=== PATIENT | female | born 1990 | race African-American/Black ===

== ENCOUNTER 2017-05-17 09:35 | Emergency (ER) | payer OTHER ==
[2017-05-17 10:11] VITALS: BP 124/80; PULSE 75; TEMP 98.6; BMI 34.0
[2017-05-17] MEDS ORDERED: IBUPROFEN 600 MG TABLET (FP) PO ONE ×2 (11:12→11:19)
--- NOTE | 2017-05-17 11:23 | PDOC ---
History of Present Illness - General Chief Complaint: Cold Symptoms Stated Complaint: FLU LIKE SYMPTOMS Time Seen by Provider: 05/17/17 11:02 History Source: Patient Exam Limitations: No Limitations - History of Present Illness Initial Comments: 05/17/17 11:16 27 yr female with sore throat for 2 days body aches and fever last night taking OTC meds no abd pain no diff swallowing or speaking Timing/Duration: reports: getting worse Severity: reports: moderate Past History - Past Medical History Allergies/Adverse Reactions: Allergies Allergy/AdvReac Type Severity Reaction Status Date / Time No Known Allergies Allergy Verified 05/17/17 10:08 Home Medications: Ambulatory Orders NK [No Known Home Medication] 06/01/16 Anemia: Yes COPD: No DVT: No - Reproductive History (#): 1 Para: 0 - Immunization History Immunization Up to Date: Yes - Suicide/Smoking/Psychosocial Hx Smoking History: Never smoked Have you smoked in the past 12 months: No Information on smoking cessation initiated: No Hx Alcohol Use: No Drug/Substance Use Hx: No Substance Use Type: None Respiratory Specific PMHX - Complaint Specific PMHX Angina: No Bronchitis: No Pneumonia: No Pulmonary Embolus: No TB (Tuberculosis): No Review of Systems - Review of Systems Able to Perform ROS?: Yes Is the patient limited Maori proficient: No Constitutional: Yes: Symptoms Reported, Fever HEENTM: Yes: Throat Pain Respiratory: No: Symptoms reported Cardiac (ROS): No: Symptoms Reported ABD/GI: No: Symptoms Reported : No: Symptoms Reported Musculoskeletal: No: Symptoms Reported Integumentary: No: Symptoms Reported Neurological: No: Symptoms reported *Physical Exam - Vital Signs Last Vital Signs Temp Pulse Resp BP Pulse Ox 98.6 F 75 16 124/80 98 05/17/17 10:08 05/17/17 10:08 05/17/17 10:08 05/17/17 10:08 05/17/17 10:08 - Physical Exam General Appearance: Yes: Nourished, Appropriately Dressed HEENT: positive: EOMI, MANDY, Normal ENT Inspection, TMs Normal, Pharynx Normal, Pharyngeal Erythema, Tonsillar Erythema Neck: positive: Supple, Lymphadenopathy (R), Lymphadenopathy (L). negative: Tender Respiratory/Chest: positive: Lungs Clear, Normal Breath Sounds. negative: Chest Tender Cardiovascular: positive: Regular Rhythm, Regular Rate Musculoskeletal: positive: Normal Inspection Extremity: positive: Normal Capillary Refill, Normal Inspection, Normal Range of Motion Integumentary: positive: Normal Color, Dry, Warm Neurologic: positive: Fully Oriented, Alert, Normal Mood/Affect, Normal Response , Motor Strength 08/20 Medical Decision Making - Medical Decision Making 05/17/17 11:19 cc: sore throat , body aches started yesterday no vomiting or diarrhea no medical history. will check for strep motrin now *DC/Admit/Observation/Transfer Diagnosis at time of Disposition: Viral syndrome - Discharge Dispostion Disposition: HOME Condition at time of disposition: Good - Referrals Referrals: Kike Alvarenga MD [Primary Care Provider] - - Patient Instructions Printed Discharge Instructions: DI for Common Cold Additional Instructions: drink pleanty of fluids take motrin 600mg every 6-8hrs for fever or pain (over the counter ibuprofen, advil or motrin all the same ) gargle with warm salt water 4-5 times a day use any over the counter throat lozengers you like return to ER for any worsening symptoms - Post Discharge Activity
== END 2017-05-17 12:51 | disposition home or self-care (01) ==
LOC: JERFT 09:35
DX: B34.9 Viral infection, unspecified (principal)
CPT/HCPCS: 87070; 87430; 99281-25

== ENCOUNTER 2017-06-08 15:08 | Emergency (ER) | payer OTHER ==
--- NOTE | 2017-06-08 15:20 | PDOC ---
Rapid Medical Evaluation Time Seen by Provider: 06/08/17 15:19 Medical Evaluation: Allergies Allergy/AdvReac Type Severity Reaction Status Date / Time No Known Allergies Allergy Verified 05/17/17 10:08 06/08/17 15:19 I have performed a brief in-person evaluation of this patient. The patient presents with a chief complaint of: body aches w/ URI sxs x 3 days Pertinent physical exam findings:Temp of 102.4 w/ unremarkable exam otherwise I have ordered the following:nothing The patient will proceed to the ED for further evaluation. 06/08/17 15:21
[2017-06-08 15:23] VITALS: BMI 36.9
[2017-06-08] MEDS ORDERED: ACETAMINOPHEN 500 MG TABLET (FP) PO ONE (17:48)
[2017-06-08] MEDS ORDERED: ACETAMINOPHEN 500 MG TABLET (FP) ONE (17:56)
[2017-06-08 18:11] LABS: URINE APPEARANCE CLOUDY; URINE BILIRUBIN NEGATIVE (NEGATIVE); URINE BLOOD 3+ (NEGATIVE); URINE COLOR AMBER; URINE GLUCOSE (UA) NEGATIVE (NEGATIVE); URINE KETONE TRACE (NEGATIVE); URINE NITRITE NEGATIVE (NEGATIVE)
[2017-06-08 18:24] LABS: BASO % 0.5 % (0-2.0); EOS % 3.5 % (0-4.5); HEMATOCRIT 39.4 % (32.4-45.2); HEMOGLOBIN 12.9 GM/dL (10.7-15.3); LYMPH % 20.9 % (8-40); MCH 27.8 pg (25.7-33.7); MCHC 32.8 g/dl (32.0-36.0); MEAN CELL VOLUME 84.9 fl (80-96); MEAN PLT VOLUME 8.2 fl (7.5-11.1); MONO % 13.9 % (3.8-10.2); NEUT % 61.2 % (42.8-82.8); PLATELET COUNT 225 K/MM3 (134-434); RBC 4.64 M/mm3 (3.60-5.2); RDW 14.6 % (11.6-15.6); WHITE BLOOD COUNT 4.2 K/mm3 (4.0-10.0)
[2017-06-08 18:32] LABS: URINE LEUK ESTERASE 1+ (NEGATIVE); URINE PROTEIN 2+ (NEGATIVE)
[2017-06-08 18:33] LABS: EPI CELLS MANY /HPF (FEW); URINE BACTERIA RARE /hpf (NONE SEEN); URINE MUCUS MANY
[2017-06-08 19:05] LABS: ALBUMIN 3.7 g/dl (3.4-5.0); ANION GAP 13 (8-16); BLOOD UREA NITROGEN 8 mg/dL (7-18); CALCIUM 9.1 mg/dL (8.5-10.1); CHLORIDE 101 mmol/L (98-107); CO2 22 mmol/L (21-32); CREATININE 0.8 mg/dL (0.55-1.02); GLUCOSE,RANDOM 94 mg/dL (74-106); POTASSIUM 3.9 mmol/L (3.5-5.1); SGOT/AST 22 U/L (15-37); SGPT/ALT 25 U/L (12-78); SODIUM 136 mmol/L (136-145)
--- NOTE | 2017-06-08 19:07 | PDOC ---
History of Present Illness - General Chief Complaint: Respiratory Stated Complaint: BODYACHES, NAUSEA Time Seen by Provider: 06/08/17 15:19 - History of Present Illness Initial Comments: 06/08/17 19:04 " The patient is a 27 year old female, , with no significant past medical history, who presents to the emergency department with flu like symptoms for a few days. She reports that she has been experiencing a fever (102.4 F), chills, dry cough and nasal congestion for about 3 days. Denies any abdominal pain, denies chest pain, denies SOB, denies N/V/D. Pt also reports that she had a test last week which was positive. She saw her primary doctor, who performed an US that she states "did not show anything". Pt notes that today, she began to have some vaginal spotting as well with diffuse abdominal cramps. She describes her vaginal bleeding as mild and her abdominal pain as mild, without radiation or modifying factors. The patient denies chest pain, shortness of breath, headache and dizziness. Denies nausea, vomit, diarrhea and constipation. Denies dysuria, frequency, urgency and hematuria. LMP: 04/29/2017 Allergies: None Past surgical history: None reported Social history: No alcohol, tobacco or drug use reported " Past History - Past Medical History Allergies/Adverse Reactions: Allergies Allergy/AdvReac Type Severity Reaction Status Date / Time No Known Allergies Allergy Verified 06/08/17 15:22 Home Medications: Ambulatory Orders Nitrofurantoin Monohyd/M-Cryst [Macrobid -] 100 mg PO BID #14 capsule 06/08/17 Oseltamivir Phosphate [Tamiflu] 75 mg PO BID #14 capsule 06/08/17 Anemia: Yes COPD: No DVT: No - Reproductive History Is Patient Now?: Yes (#): 4 Para: 1 Cervical CA: No Dysfunctional Uterine Bleeding: No Ectopic : No Endometrial CA: No Polycystic Ovaries: No Therapeutic (s) & number: Yes Tubal Ligation: No Spontaneous : 1 - Immunization History Immunization Up to Date: Yes - Suicide/Smoking/Psychosocial Hx Smoking History: Never smoked Have you smoked in the past 12 months: No Hx Alcohol Use: No Drug/Substance Use Hx: No Substance Use Type: None Review of Systems - Review of Systems Comments:: 06/08/17 19:06 "GENERAL/CONSTITUTIONAL: (+) fever and chills. No weakness. HEAD, EYES, EARS, NOSE AND THROAT: No change in vision. No ear pain or discharge. No sore throat. CARDIOVASCULAR: No chest pain or shortness of breath. RESPIRATORY: (+) Cough. No wheezing, or hemoptysis. GASTROINTESTINAL: (+) Abdominal pain. No nausea, vomiting, diarrhea or constipation. GENITOURINARY: (+) Vaginal bleeding. No dysuria, frequency, or change in urination. MUSCULOSKELETAL: No joint or muscle swelling or pain. No neck or back pain. SKIN: No rash NEUROLOGIC: No headache, vertigo, loss of consciousness, or change in strength/ sensation. ENDOCRINE: No increased thirst. No abnormal weight change. HEMATOLOGIC/LYMPHATIC: No anemia, easy bleeding, or history of blood clots. ALLERGIC/IMMUNOLOGIC: No hives or skin allergy." *Physical Exam - Vital Signs Last Vital Signs Temp Pulse Resp BP Pulse Ox 102.4 F H 95 H 18 136/63 98 06/08/17 15:20 06/08/17 15:20 06/08/17 15:20 06/08/17 15:20 06/08/17 17:43 - Physical Exam Comments: 06/08/17 19:06 "GENERAL: Awake, alert, and fully oriented, in no acute distress HEAD: No signs of trauma EYES: PERRLA, EOMI, sclera anicteric, conjunctiva clear ENT: Auricles normal inspection, hearing grossly normal, nares patent, oropharynx clear without exudates. Moist mucosa NECK: Nontender, no stepoffs, Normal ROM, supple, no lymphadenopathy, JVD, or masses LUNGS: Breath sounds equal, clear to auscultation bilaterally. No wheezes, and no crackles HEART: Regular rate and rhythm, normal S1 and S2, no murmurs, rubs or gallops ABDOMEN: Soft, nontender, normoactive bowel sounds. No guarding, no rebound. No masses EXTREMITIES: Normal range of motion, no edema. No clubbing or cyanosis. No cords, erythema, or tenderness NEUROLOGICAL: Cranial nerves II through XII intact. 5/5 strength and sensation in all extremities, Normal speech, normal gait, normal cerebellar function SKIN: Warm, Dry, normal turgor, no rashes or lesions noted." : os closed, no CMT, scant blood in vault, no adnexal masses/tenderness ED Treatment Course - LABORATORY CBC & Chemistry Diagram: 06/08/17 18:15 06/08/17 18:15 - ADDITIONAL ORDERS Additional order review: Laboratory Results 06/08/17 17:34 Urine Color Alley Urine Appearance Cloudy Urine pH 5.0 Ur Specific [place] 1.031 Urine Protein 2+ H Urine Glucose (UA) Negative Urine Ketones Trace H Urine Blood 3+ H Urine Nitrite Negative Urine Bilirubin Negative Urine Urobilinogen 2.0 H Ur Leukocyte Esterase 1+ H Urine WBC (Auto) 28 Urine RBC (Auto) 22 Ur Epithelial Cells Many Urine Bacteria Rare Urine Mucus Many 06/08/17 18:15 RBC 4.64 MCV 84.9 MCHC 32.8 RDW 14.6 MPV 8.2 Neutrophils % 61.2 D Lymphocytes % 20.9 D Monocytes % 13.9 H D Eosinophils % 3.5 D Basophils % 0.5 - RADIOLOGY Radiology Studies Ordered: Category Date Time Status TRANSVAGINAL ULTRASOUND US [US] Stat Ultrasound 06/08/17 17:53 Ordered - Medications Given in the ED: ED Medications Discontinued Medications Generic Name Dose Route Start Last Admin Trade Name Freq PRN Reason Stop Dose Admin Acetaminophen 1,000 mg 06/08/17 17:48 06/08/17 18:00 Tylenol - PO 06/08/17 17:49 1,000 mg ONCE ONE Administration Medical Decision Making - Medical Decision Making 06/08/17 19:07 27 F with flu-like symptoms. Also complaining of vaginal spotting and abdominal cramps with positive UPT at home. - Labs, HCG, T&S - TVUS to r/o ectopic - Tylenol 06/08/17 21:16 TVUS with intrauterine yolk sac, HCG 600. Likely miscarriage Pt with UA consistent with UTI. Will DC with tamiflu and macrobid. 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 Clinically stable for DC at this time. I discussed the physical exam findings, ancillary test results and final diagnoses with the patient. I answered all of the patient's questions. The patient was satisfied with the care received and felt comfortable with the discharge plan and treatment plan. The patient agrees to follow up with the primary care physician within 24-72 hours. *DC/Admit/Observation/Transfer Diagnosis at time of Disposition: Vaginal bleeding affecting early - Discharge Dispostion Disposition: HOME Condition at time of disposition: Fair - Prescriptions Prescriptions: Nitrofurantoin Monohyd/M-Cryst [Macrobid -] 100 mg PO BID #14 capsule Oseltamivir Phosphate [Tamiflu] 75 mg PO BID #14 capsule - Referrals Referrals: Kike Alvarenga MD [Primary Care Provider] - - Patient Instructions Printed Discharge Instructions: DI for Miscarriage Additional Instructions: You may be having a miscarriage. You must follow up with an combat engineer within 3 days for a repeat ultrasound. We cannot definitively rule out an ectopic at this time. This is potentially a life-threatening condition, so it is very important that you follow up for repeat imaging. You also have a urinary tract infection. Take the antibiotics as prescribed to treat it. If you experience worsening bleeding, pain, fevers, or any other concerning symptoms, return to the ER immediately. - Post Discharge Activity - Attestations Physician Attestion: 06/08/17 21:19 I, Dr. Bryan Espinoza MD, attest that this document has been prepared under my direction and personally reviewed by me in its entirety. I further attest, that it accurately reflects all work, treatment, procedures and medical decision -making performed by me.
[2017-06-08 19:09] LABS: ALK PHOS 59 U/L (45-117); BILIRUBIN,TOTAL 0.3 mg/dL (0.2-1.0); TOT PROT 7.8 g/dl (6.4-8.2)
[2017-06-08] MEDS ORDERED: NITROFURANTOIN MACROCRYSTAL 50 MG CAPSULE (FP) PO SCH (19:15)
[2017-06-08] MEDS ORDERED: NITROFURANTOIN MACROCRYSTAL 50 MG CAPSULE (FP) ONE (20:51)
[2017-06-08 21:57] VITALS: BP 120/80; PULSE 90; TEMP 101
== END 2017-06-08 21:57 | disposition home or self-care (01) ==
LOC: JERFT 15:08 → JER 15:08
DX: O26.891 Other specified pregnancy related conditions, first trimester (principal); O20.8 Other hemorrhage in early pregnancy; O23.41 Unspecified infection of urinary tract in pregnancy, first trimester; Z3A.00 Weeks of gestation of pregnancy not specified
CPT/HCPCS: 36415; 76830-TC; 80053; 81003; 81015; 84702; 85025; 86850; 86900; 86901; 99284-25

== ENCOUNTER 2017-06-14 09:03 | Emergency (ER) | payer OTHER ==
[2017-06-14 09:10] VITALS: BP 140/68; PULSE 78; TEMP 98.1; BMI 34.2
--- NOTE | 2017-06-14 10:09 | PDOC ---
History of Present Illness - General [place] [facility] [place]: [place], [place] Time Seen by Provider: 06/14/17 09:38 History Source: Patient Exam Limitations: No Limitations - History of Present Illness Initial Comments: 06/14/17 09:50 Patient return today for reevaluation of vaginal bleeding and positive test. Was seen here 6 days ago and had an ultrasound that was not definitive and a beta hCG of 650. Patient denies fevers, abdominal pain, any recurrent vaginal bleeding,. Saw her ROLL LINE OPERATOR doctor over the weekend but no procedures were done and was unable to obtain lab work due to closure of the outlying [facility]. Patient states return here because she was concerned without any follow-up for potential for ectopic although states has been well without any evidence or symptoms of problems 06/14/17 12:22 Timing/Duration: unsure Severity: mild Past History - Past Medical History Allergies/Adverse Reactions: Allergies Allergy/AdvReac Type Severity Reaction Status Date / Time No Known Allergies Allergy Verified 06/14/17 09:06 Home Medications: Ambulatory Orders NK [No Known Home Medication] 06/14/17 Anemia: Yes COPD: No DVT: No - Reproductive History (#): 4 Para: 1 Cervical CA: No Dysfunctional Uterine Bleeding: No Ectopic : No Endometrial CA: No Polycystic Ovaries: No Therapeutic (s) & number: Yes Tubal Ligation: No Spontaneous : 1 - Immunization History Immunization Up to Date: Yes - Suicide/Smoking/Psychosocial Hx Smoking History: Never smoked Have you smoked in the past 12 months: No Information on smoking cessation initiated: No Hx Alcohol Use: No Drug/Substance Use Hx: No Substance Use Type: None *Physical Exam - Vital Signs Last Vital Signs Temp Pulse Resp BP Pulse Ox 98.1 F 78 18 140/68 100 06/14/17 09:07 06/14/17 09:07 06/14/17 09:07 06/14/17 09:07 06/14/17 09:07 - Physical Exam General Appearance: Yes: Nourished, Appropriately Dressed. No: Apparent Distress HEENT: positive: MANDY, Normal ENT Inspection, Normal Voice, TMs Normal, Pharynx Normal Neck: positive: Tender, Supple Respiratory/Chest: positive: Lungs Clear Gastrointestinal/Abdominal: positive: Soft. 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 Beta hCG down from 656 days ago 2:30 today indicating complete AB. Patient given information and will follow up with her ROLL LINE OPERATOR doctor *DC/Admit/Observation/Transfer Diagnosis at time of Disposition: Complete - Discharge Dispostion Disposition: HOME Condition at time of disposition: Stable Admit: No - Referrals Referrals: Kike Alvarenga MD [Primary Care Provider] - - Patient Instructions Printed Discharge Instructions: DI for Miscarriage Additional Instructions: Rest, avoid strenuous activity or heavy lifting until cleared by Drink lots of fluids to replace fluids lost Follow-up with ROLL LINE OPERATOR doctor as needed - Post Discharge Activity Forms/Work/School Notes: Back to Work
== END 2017-06-14 11:40 | disposition home or self-care (01) ==
LOC: JERFT 09:03
DX: O26.891 Other specified pregnancy related conditions, first trimester (principal); O03.9 Complete or unspecified spontaneous abortion without complication; Z3A.01 Less than 8 weeks gestation of pregnancy
CPT/HCPCS: 36415; 76817-TC; 84702; 99281-25

== ENCOUNTER 2018-06-12 11:35 | Emergency (ER) | payer OTHER ==
[2018-06-12 11:47] VITALS: BP 121/74; PULSE 74; TEMP 98.1; BMI 32.5
--- NOTE | 2018-06-12 13:06 | PDOC ---
History of Present Illness - General Chief Complaint: Pain, Acute Stated Complaint: LF SIDED NECK PAIN Time Seen by Provider: 06/12/18 12:15 - History of Present Illness Initial Comments: 06/12/18 13:01 28-year-old female without comorbidities presents for evaluation of left-sided neck pain without radicular symptoms times one day. Past History - Past Medical History Allergies/Adverse Reactions: Allergies Allergy/AdvReac Type Severity Reaction Status Date / Time No Known Allergies Allergy Verified 06/14/17 09:06 Home Medications: Ambulatory Orders [id number]/Iron/Folic/Dha [ Formula-Dha Softgel] 1 each PO DAILY # 30 capsule 06/12/18 Anemia: Yes COPD: No DVT: No HTN: No - Reproductive History (#): 4 Para: 1 Cervical CA: No Dysfunctional Uterine Bleeding: No Ectopic : No Endometrial CA: No Polycystic Ovaries: No Therapeutic (s) & number: Yes Tubal Ligation: No Spontaneous : 1 - Immunization History Immunization Up to Date: Yes - Suicide/Smoking/Psychosocial Hx Smoking History: Never smoked Have you smoked in the past 12 months: No Information on smoking cessation initiated: No Hx Alcohol Use: No Drug/Substance Use Hx: No Substance Use Type: None Review of Systems - Review of Systems Musculoskeletal: Yes: Neck Pain *Physical Exam - Vital Signs Last Vital Signs Temp Pulse Resp BP Pulse Ox 98.1 F 74 18 121/74 99 06/12/18 11:44 06/12/18 11:44 06/12/18 11:44 06/12/18 11:44 06/12/18 11:44 - Physical Exam Comments: 06/12/18 13:01 HEAD: NC/AT EYES: Conjuntiva clear Ears: Canals and TM's normal NOSE: No d/c THROAT: Moist mucous membrances, oral pharanx clear, uvula midline NECK: No adenopathy CARDIAC: S1 S2 LUNGS: CTA Full and Equal breath sounds ABDOMEN: Soft NT ND MS: Full ROM in all joints without edema NEUROLOGIC: No gross sensory or motor deficits, NVID SKIN: Normal color and temperature no lesions or rashes Cervical spine skin color and temperature are normal. Range of motion is slightly limited. There is no midline tenderness. Mild right and left paracervical musculature spasm and left-sided trapezium spasm. 5 out of 5 strength in bilateral upper extremities without gross sensorimotor deficits. She is neurovascularly intact. Negative Spurling maneuver. Moderate Sedation - Procedure Monitoring Vital Signs: Procedure Monitoring Vital Signs Temperature 98.1 F 06/12/18 11:44 Pulse Rate 74 06/12/18 11:44 Respiratory Rate 18 06/12/18 11:44 Blood Pressure 121/74 06/12/18 11:44 O2 Sat by Pulse Oximetry (%) 99 06/12/18 11:44 ED Treatment Course - ADDITIONAL ORDERS Additional order review: Laboratory Results 06/12/18 12:40 Urine HCG, Qual Positive Medical Decision Making - Medical Decision Making 06/12/18 13:03 Patient is unsure of status, before giving her any medications such as Flexeril and anti-inflammatories I want a test. She was informed of her positive results. Tylenol for pain vitamin prescribed. *DC/Admit/Observation/Transfer Diagnosis at time of Disposition: , Cervical strain - Discharge Dispostion Disposition: HOME Condition at time of disposition: Stable Decision to Admit order: No - Referrals Referrals: Yamini Hughes MD [Staff Physician] - Merrick Murry MD [Staff Physician] - - Patient Instructions Printed Discharge Instructions: Diet, DI for Cervical Muscle Strain Additional Instructions: Return to the emergency room for worsening symptoms. Please follow-up with spine surgery for further evaluation and treatment of your neck pain. He may take Tylenol for pain and no other medications. I've also prescribed fewer vitamin which she should start taking as well as given U an ballet master/mistress to follow up with. test was positive today. - Post Discharge Activity
== END 2018-06-12 13:13 | disposition home or self-care (01) ==
LOC: JERFT 11:35
DX: O99.89 Other specified diseases and conditions complicating pregnancy, childbirth and the puerperium (principal); S16.1XXA Strain of muscle, fascia and tendon at neck level, initial encounter; Z3A.00 Weeks of gestation of pregnancy not specified; X58.XXXA Exposure to other specified factors, initial encounter; Y93.89 Activity, other specified; Y92.038 Other place in apartment as the place of occurrence of the external cause; Y99.8 Other external cause status
CPT/HCPCS: 84703; 99281-25

== ENCOUNTER 2018-11-14 08:18 | Emergency (ER) | payer OTHER ==
[2018-11-14 08:24] VITALS: BP 123/74; PULSE 67; TEMP 98.2; BMI 35.4
[2018-11-14] MEDS ORDERED: IBUPROFEN 400 MG TABLET (FP) PO ONE ×2 (08:32→08:51)
--- NOTE | 2018-11-14 08:38 | PDOC ---
History of Present Illness - General Chief Complaint: Injury Stated Complaint: LT ANKLE SWOLLEN Time Seen by Provider: 11/14/18 08:29 History Source: Patient Exam Limitations: No Limitations Past History - Past Medical History Allergies/Adverse Reactions: Allergies Allergy/AdvReac Type Severity Reaction Status Date / Time No Known Allergies Allergy Verified 11/14/18 08:21 Home Medications: Ambulatory Orders [id number]/Iron/Folic/Dha [ Formula-Dha Softgel] 1 each PO DAILY # 30 capsule 06/12/18 Anemia: Yes COPD: No DVT: No HTN: No - Reproductive History (#): 4 Para: 1 Cervical CA: No Dysfunctional Uterine Bleeding: No Ectopic : No Endometrial CA: No Polycystic Ovaries: No Therapeutic (s) & number: Yes Tubal Ligation: No Spontaneous : 1 - Immunization History Immunization Up to Date: Yes - Suicide/Smoking/Psychosocial Hx Smoking History: Never smoked Have you smoked in the past 12 months: No Hx Alcohol Use: No Drug/Substance Use Hx: No Substance Use Type: None *Physical Exam - Vital Signs Last Vital Signs Temp Pulse Resp BP Pulse Ox 98.2 F 67 18 123/74 100 11/14/18 08:21 11/14/18 08:21 11/14/18 08:21 11/14/18 08:21 11/14/18 08:21 - Physical Exam General Appearance: No: Apparent Distress Extremity: positive: Other (+mild swelling and TTP along lateral aspect of L ankle, mild pain with movement of L ankle, no deformity, LLE neurovascularly intact) Integumentary: negative: Ecchymosis, Bruising Neurologic: positive: Alert, Normal Mood/Affect ED Treatment Course - RADIOLOGY Radiology Studies Ordered: Category Date Time Status ANKLE & FOOT-LEFT* [RAD] Stat Radiology 11/14/18 08:33 Ordered Medical Decision Making - Medical Decision Making 28 y/o F with no sig pmh presents with twisting L ankle yesterday while going down the steps. Denies other trauma, numbness, tingling. Likely ankle sprain; xray to r/o fracture Plan: Xray, motrin 11/14/18 08:37 No fracture noted on xray LLE placed in ankle stirrup 11/14/18 08:53 *DC/Admit/Observation/Transfer Diagnosis at time of Disposition: Left ankle sprain Qualifiers: Encounter type: initial encounter Involved ligament of ankle: unspecified ligament Qualified Code(s): S93.402A - Sprain of unspecified ligament of left ankle, initial encounter - Discharge Dispostion Disposition: HOME Condition at time of disposition: Stable Decision to Admit order: No - Referrals Referrals: Kike Alvarenga MD [Primary Care Provider] - - Patient Instructions Printed Discharge Instructions: DI for Ankle Sprain Additional Instructions: Thank you for choosing [facility]. It was a pleasure taking care of you. There was no fracture noted on your xray. You may take Motrin 600 mg every 6 hours by mouth as needed for mild to moderate pain. Take Motrin with food. Apply cold compresses over injury to help decrease swelling; you may switch to warm compresses after 2 days Keep leg elevated above level of heart to help decrease swelling Return to the Emergency Department if your symptoms worsen or persist or have other concerning symptoms. - Post Discharge Activity
== END 2018-11-14 09:00 | disposition home or self-care (01) ==
LOC: JERFT 08:18
PROC: 2W3RX1Z Immobilization of Left Lower Leg using Splint (ICD-10-PCS; principal; 2018-11-14)
DX: S93.402A Sprain of unspecified ligament of left ankle, initial encounter (principal); X50.1XXA Overexertion from prolonged static or awkward postures, initial encounter; Y93.89 Activity, other specified; Y92.89 Other specified places as the place of occurrence of the external cause; Y99.8 Other external cause status
CPT/HCPCS: 29515; 73610-TC-LT-FY; 73630-TC-LT; 99282-25

== ENCOUNTER 2018-11-23 15:09 | Emergency (ER) | payer OTHER | END 2018-11-23 16:51 | disposition home or self-care (01) | LOC: JERFT 15:09 ==

== ENCOUNTER 2018-11-27 15:07 | Emergency (ER) | payer OTHER ==
--- NOTE | 2018-11-27 15:21 | PDOC ---
Rapid Medical Evaluation Time Seen by Provider: 11/27/18 15:19 Medical Evaluation: Allergies Allergy/AdvReac Type Severity Reaction Status Date / Time No Known Allergies Allergy Verified 11/23/18 15:14 11/27/18 15:20 HPI: here for follow up L wrist fracture PE: No Gross deficits ORDERS L wrist x-ray Discharge Disposition - Diagnosis Wrist pain - Referrals - Patient Instructions - Post Discharge Activity
[2018-11-27 15:24] VITALS: BP 124/60; PULSE 90; TEMP 98.1; BMI 31.0
--- NOTE | 2018-11-27 15:54 | PDOC ---
History of Present Illness - General Chief Complaint: Revisit,Wound Recheck Stated Complaint: REVISIT Time Seen by Provider: 11/27/18 15:19 - History of Present Illness Initial Comments: 11/27/18 15:49 CHIEF COMPLAINT: left wrist re-evaluation HISTORY OF PRESENT ILLNESS: 28 yo F presents to [facility] for repeat x-ray of L wrist. Patient reports she was seen a week ago after a minor injury to her left wrist and was told she had a possible fracture "but I didn't think it was a fracture" and she has since taken her splint off as the swelling reduced and she is able to use her wrist. She reports she wants a work note stating she can go back to work earlier than originally stated on the last work note. No recent travel or sick contacts. PAST MEDICAL HISTORY: Denies past medical history FAMILY HISTORY: Denies SOCIAL HISTORY:Denies tobacco, alcohol, illicit drug use. SURGICAL HISTORY: Denies ALLERGIES: No known drug allergies REVIEW OF SYSTEMS General/Constitutional: Denies fever or chills. Denies weakness, weight change. HEENT: Denies change in vision. Denies ear pain or discharge. Denies sore throat. Cardiovascular: Denies chest pain or shortness of breath. Respiratory: Denies cough, wheezing, or hemoptysis. Gastrointestinal: Denies nausea, vomiting, diarrhea or constipation. Denies rectal bleeding. Genitourinary: Denies dysuria, frequency, or change in urination. Musculoskeletal: "My wrist is fine now." Denies joint or muscle swelling or pain. Denies neck or back pain. Skin and breasts: Denies rash or easy bruising. Neurologic: Denies headache, vertigo, loss of consciousness, or loss of sensation. PHYSICAL EXAM General Appearance: Well-appearing, appropriately dressed. No apparent distress , no intoxication. HEENT: EOMI, PERRLA, normal ENT inspection, normal voice, TMs normal, pharynx normal. No conjunctival pallor. No photophobia, scleral icterus. Neck: Supple. Trachea midline. No tenderness, rigidity, carotid bruit, stridor , lymphadenopathy, or thyromegaly. Respiratory/Chest: Lungs CTAB. No shortness of breath, chest tenderness, respiratory distress, accessory muscle use. No crackles, rales, rhonchi, stridor , wheezing, dullness Cardiovascular: RRR. S1, S2. No JVD, murmur, bradycardia, tachycardia. Vascular Pulses: Dorsalis-Pedis (R): 2+, Dorsalis-Pedis (L): 2+ Gastrointestinal/Abdominal: Normal bowel sounds. Abdomen soft, non-distended. No tenderness or rebound tenderness. No organomegaly, pulsatile mass, guarding , hernia, hepatomegaly, splenomegaly. Lymphatic: No adenopathy, tenderness. Musculoskeletal/Extremities: Normal inspection. FROM of all extremities, normal capillary refill. Pelvis Stable. No CVA tenderness. No tenderness to extremities, pedal edema, swelling, erythema or deformity. Integumentary: Appropriate color, dry, warm. 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 Fully oriented, alert. Appropriate mood/affect. Motor strength 5/5. No appreciable EOM palsy, facial droop or sensory deficit. Past History - Past Medical History Allergies/Adverse Reactions: Allergies Allergy/AdvReac Type Severity Reaction Status Date / Time No Known Allergies Allergy Verified 11/23/18 15:14 Home Medications: Ambulatory Orders [id number]/Iron/Folic/Dha [ Formula-Dha Softgel] 1 each PO DAILY # 30 capsule 06/12/18 Anemia: Yes COPD: No DVT: No HTN: No - Reproductive History (#): 4 Para: 1 Cervical CA: No Dysfunctional Uterine Bleeding: No Ectopic : No Endometrial CA: No Polycystic Ovaries: No Therapeutic (s) & number: Yes Tubal Ligation: No Spontaneous : 1 - Immunization History Immunization Up to Date: Yes - Suicide/Smoking/Psychosocial Hx Smoking History: Never smoked Have you smoked in the past 12 months: No Hx Alcohol Use: No Drug/Substance Use Hx: No Substance Use Type: None *Physical Exam - Vital Signs Last Vital Signs Temp Pulse Resp BP Pulse Ox 98.1 F 90 20 124/60 100 11/27/18 15:21 11/27/18 15:21 11/27/18 15:21 11/27/18 15:21 11/27/18 15:21 Medical Decision Making - Medical Decision Making 11/27/18 15:52 28 yo F [facility] repeat x-ray of L wrist. -xray *DC/Admit/Observation/Transfer Diagnosis at time of Disposition: Wrist injury Qualifiers: Encounter type: subsequent encounter Laterality: left Qualified Code(s): S69.92XD - Unspecified injury of left wrist, hand and finger(s), subsequent encounter - Discharge Dispostion Disposition: HOME Condition at time of disposition: Stable Decision to Admit order: No - Referrals - Patient Instructions - Post Discharge Activity Forms/Work/School Notes: Back to Work
== END 2018-11-27 16:01 | disposition home or self-care (01) ==
LOC: JERFT 15:07
DX: S69.92XD Unspecified injury of left wrist, hand and finger(s), subsequent encounter (principal); X58.XXXD Exposure to other specified factors, subsequent encounter
CPT/HCPCS: 73110-TC-LT-FY; 99281-25

== ENCOUNTER 2019-01-23 16:47 | Emergency (ER) | payer SELFPAY ==
--- NOTE | 2019-01-23 16:57 | PDOC ---
Rapid Medical Evaluation Chief Complaint: Pain, Acute Time Seen by Provider: 01/23/19 16:55 Medical Evaluation: Allergies Allergy/AdvReac Type Severity Reaction Status Date / Time No Known Allergies Allergy Verified 11/23/18 15:14 01/23/19 16:55 I performed a brief in-person evaluation of this patient. Healthy 28-year-old female fell on left knee while walking up steps. Alert, oriented, no distress. Pain with flexion of knee, but able to flex to 90 degrees. Some tenderness at medial aspect of patella. Bearing full weight. I have ordered the following: None. Patient will proceed to FT for further evaluation. Discharge Disposition - Diagnosis Knee injury - Discharge Dispostion Condition at time of disposition: Stable - Referrals - Patient Instructions - Post Discharge Activity
[2019-01-23 16:58] VITALS: BP 134/80; PULSE 73; TEMP 98.8; BMI 34.0
--- NOTE | 2019-01-23 18:04 | PDOC ---
History of Present Illness - General Chief Complaint: Pain, Acute Stated Complaint: LT KNEE INJURY Time Seen by Provider: 01/23/19 16:55 History Source: Patient Exam Limitations: No Limitations - History of Present Illness Initial Comments: 01/23/19 18:02 States tripped upstairs this morning falling onto left knee/kneecap. 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 Denies numbness or tingling the foot, no other injury. Occurred: reports: this morning Severity: reports: mild, moderate Pain Location: reports: lower extremity (Left knee) Method of Injury: Yes: direct blow Modifying Factors: improves with: None Associated Symptoms (Fall): denies symptoms Past History - Travel Traveled outside of the country in the last 30 days: No Close contact w/someone who was outside of country & ill: No - Past Medical History Allergies/Adverse Reactions: Allergies Allergy/AdvReac Type Severity Reaction Status Date / Time No Known Allergies Allergy Verified 11/23/18 15:14 Home Medications: Ambulatory Orders [id number]/Iron/Folic/Dha [ Formula-Dha Softgel] 1 each PO DAILY # 30 capsule 06/12/18 Leg Brace [Knee Brace] 1 each MC ONCE #1 each 01/23/19 Anemia: Yes COPD: No DVT: No HTN: No - Reproductive History (#): 4 Para: 1 Cervical CA: No Dysfunctional Uterine Bleeding: No Ectopic : No Endometrial CA: No Polycystic Ovaries: No Therapeutic (s) & number: Yes Tubal Ligation: No Spontaneous : 1 - Immunization History Immunization Up to Date: Yes - Psycho Social/Smoking Cessation Hx Smoking History: Never smoked Have you smoked in the past 12 months: No Information on smoking cessation initiated: No Hx Alcohol Use: No Drug/Substance Use Hx: No Substance Use Type: None Review of Systems - Review of Systems Able to Perform ROS?: Yes Is the patient limited [place] proficient: Yes Constitutional: Yes: See HPI. No: Symptoms Reported HEENTM: No: Symptoms Reported Respiratory: No: Symptoms reported Musculoskeletal: Yes: Symptoms Reported, See HPI, Joint Pain, Joint Swelling, Muscle Pain Integumentary: Yes: Symptoms Reported, See HPI, Bruising All Other Systems: Reviewed and Negative *Physical Exam - Vital Signs Last Vital Signs Temp Pulse Resp BP Pulse Ox 98.8 F 73 18 134/80 96 10/08/19 16:55 01/23/19 16:55 01/23/19 16:55 01/23/19 16:55 01/23/19 16:55 - Physical Exam General Appearance: Yes: Nourished, Appropriately Dressed, Apparent Distress, Mild Distress HEENT: positive: MANDY, Normal ENT Inspection, TMs Normal, Pharynx Normal Neck: positive: Tender Respiratory/Chest: positive: Lungs Clear Musculoskeletal: positive: Normal Inspection Extremity: positive: Normal Capillary Refill, Normal Inspection, Normal Range of Motion (With mild tenderness to the inferior patella without ballottement or crepitus. No medial or lateral tenderness, mildly swollen. Ambulatory with some slight limp. 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 Sent prescription for ibuprofen and given note for work for couple days. Encouraged to follow-up with orthopedist. 01/23/19 22:13 Discharge - Discharge Information Problems reviewed: Yes Clinical Impression/Diagnosis: Knee injury Qualifiers: Encounter type: initial encounter Laterality: left Qualified Code(s): S89.92XA - Unspecified injury of left lower leg, initial encounter Contusion, knee Qualifiers: Encounter type: initial encounter Laterality: left Qualified Code(s): S80.02XA - Contusion of left knee, initial encounter Condition: Stable Disposition: HOME - Admission No - Additional Discharge Information Prescriptions: Leg Brace [Knee Brace] 1 each ONCE #1 each - Follow up/Referral Referrals: Kike Alvarenga MD [Primary Care Provider] - Merrick Henson MD [Staff Physician] - - Patient Discharge Instructions Additional Instructions: Rest, ice to area on and off for 15 minutes 4-6 times a day Avoid heavy lifting or exercise until pain and swelling is resolved or until further directed Keep area highly elevated to reduce swelling Use splints/Xavi wrap as directed Followup with orthopedist in one to 2 days if not improving, if significantly improved may wait one week for followup with orthopedist May use ibuprofen every 6 hours as needed for pain - Post Discharge Activity Work/Back to School Note: Back to Work
== END 2019-01-23 18:55 | disposition home or self-care (01) ==
LOC: JERFT 16:47
PROC: 2W3MX3Z Immobilization of Left Lower Extremity using Brace (ICD-10-PCS; principal; 2019-01-23)
DX: S80.02XA Contusion of left knee, initial encounter (principal); W10.8XXA Fall (on) (from) other stairs and steps, initial encounter; Y93.89 Activity, other specified; Y92.89 Other specified places as the place of occurrence of the external cause; Y99.8 Other external cause status
CPT/HCPCS: 73562-TC-LT-FY; 99281-25

== ENCOUNTER 2019-01-25 14:11 | Emergency (ER) | payer SELFPAY ==
[2019-01-25 14:20] VITALS: BP 149/83; PULSE 83; TEMP 98.5; BMI 32.5
[2019-01-25] MEDS ORDERED: IBUPROFEN 600 MG TABLET (FP) PO ONE ×2 (14:44→14:48)
--- NOTE | 2019-01-25 14:44 | PDOC ---
History of Present Illness - General Chief Complaint: Pain, Acute Stated Complaint: LEFT KNEE INJURY Time Seen by Provider: 01/25/19 14:22 History Source: Patient Exam Limitations: No Limitations Past History - Travel Traveled outside of the country in the last 30 days: No Close contact w/someone who was outside of country & ill: No - Past Medical History Allergies/Adverse Reactions: Allergies Allergy/AdvReac Type Severity Reaction Status Date / Time No Known Allergies Allergy Verified 11/23/18 15:14 Home Medications: Ambulatory Orders [id number]/Iron/Folic/Dha [ Formula-Dha Softgel] 1 each PO DAILY # 30 capsule 06/12/18 Leg Brace [Knee Brace] 1 each MC ONCE #1 each 01/23/19 Anemia: Yes COPD: No DVT: No HTN: No - Reproductive History (#): 4 Para: 1 Cervical CA: No Dysfunctional Uterine Bleeding: No Ectopic : No Endometrial CA: No Polycystic Ovaries: No Therapeutic (s) & number: Yes Tubal Ligation: No Spontaneous : 1 - Immunization History Immunization Up to Date: Yes - Psycho Social/Smoking Cessation Hx Smoking History: Never smoked Have you smoked in the past 12 months: No Information on smoking cessation initiated: No Hx Alcohol Use: No Drug/Substance Use Hx: No Substance Use Type: None Review of Systems - Review of Systems Able to Perform ROS?: Yes Comments:: 01/25/19 14:38 CONSTITUTIONAL: Absent: fever, chills, diaphoresis, generalized weakness, malaise, loss of appetite HEENT: Absent: rhinorrhea, nasal congestion, throat pain, throat swelling, difficulty swallowing, mouth swelling, ear pain, eye pain, visual Changes CARDIOVASCULAR: Absent: chest pain, loss of consciousness, palpitations, irregular heart rate, peripheral edema RESPIRATORY: Absent: cough, shortness of breath, dyspnea with exertion, orthopnea, wheezing, stridor, hemoptysis GASTROINTESTINAL: Absent: abdominal pain, abdominal distension, nausea, vomiting, diarrhea, constipation, melena, hematochezia GENITOURINARY: Absent: dysuria, frequency, urgency, hesitancy, hematuria, flank pain, genital pain MUSCULOSKELETAL: Present: L knee pain Absent: myalgia, arthralgia, joint swelling SKIN: Absent: rash, itching, pallor HEMATOLOGIC/IMMUNOLOGIC: Absent: easy bleeding, easy bruising, lymphadenopathy, frequent infections ENDOCRINE: Absent: unexplained weight gain, unexplained weight loss, heat intolerance, cold intolerance NEUROLOGIC: Absent: headache, focal weakness or paresthesias, dizziness, unsteady gait, seizure, mental status changes, bladder or bowel incontinence PSYCHIATRIC: Absent: anxiety, depression, suicidal or homicidal ideation, hallucinations. Is the patient limited Polish proficient: No *Physical Exam - Vital Signs Last Vital Signs Temp Pulse Resp BP Pulse Ox 98.5 F 83 17 149/83 100 01/25/19 14:16 01/25/19 14:16 01/25/19 14:16 01/25/19 14:16 01/25/19 14:16 - Physical Exam Comments: 01/25/19 14:44 GENERAL: The patient is awake, alert, and fully oriented, in no acute distress. HEAD: Normal with no signs of trauma. EYES: Pupils equal, round and reactive to light, extraocular movements intact, sclera anicteric, conjunctiva clear. EXTREMITIES: TTP of the L knee cap. No calf tenderness. FROM of the L knee. Negative anterior drawer, posterior draw, varus/valgus stressing tests. Negative Prosper's test. Normal range of motion, no edema. NEUROLOGICAL: Normal speech, normal gait. PSYCH: Normal mood, normal affect. SKIN: Warm, Dry, normal turgor, no rashes or lesions noted. Medical Decision Making - Medical Decision Making 01/25/19 14:45 The patient is a 28-year-old female who presents to the ER for left knee pain. She was seen here on 01/23/2018 after she fell on the steps and hit the front of her L knee. She had x-rays done at that time which were negative for fracture. She was given an Ortho referral and prescription for a knee brace and discharged home. She states that she had to work yesterday and did not fill the prescription for the knee brace that she states that now the knee is throbbing. She has not taken any medication for pain since last night. Denies numbness and tingling weakness to the affected extremity as well as edema. A/P: Left knee pain On exam tenderness palpation of the L patella. Special testing of the knee is negative at this time. X-ray was reviewed from 01/23/2019. No fractures identified per radiology We will give patient Motrin here and discharged home with instructions to fill the prescription for the knee brace. Work note given to place on light duty I discussed the physical exam findings, ancillary test results and final diagnoses with the patient. I answered all of the patient's questions. The patient was satisfied with the care received and felt comfortable with the discharge plan and treatment plan. The Patient agrees to follow up with the primary care physician/specialist within 24-72 hours. Return precautions were given. Discharge - Discharge Information Problems reviewed: Yes Clinical Impression/Diagnosis: Knee injury Qualifiers: Encounter type: subsequent encounter Laterality: left Qualified Code(s): S89.92XD - Unspecified injury of left lower leg, subsequent encounter Condition: Stable Disposition: HOME - Admission No - Follow up/Referral Referrals: Merrick Henson MD [Staff Physician] - - Patient Discharge Instructions Patient Printed Discharge Instructions: DI for Knee Pain Additional Instructions: You were evaluated for your knee pain today. Your x-ray did not show any fractures on your last visit. Please fill the prescription for the knee brace to help with your pain. You may switch to heat to help with the pain Please take Motrin 600 mg every 6 hours for 1 week to help with the pain.(This is 3 200mg tablets) Please follow-up with orthopedics. A referral is been provided for you. Return to the ER for any new or worsening symptoms. - Post Discharge Activity Work/Back to School Note: Back to Work
== END 2019-01-25 15:10 | disposition home or self-care (01) ==
LOC: JERFT 14:11
DX: S89.82XD Other specified injuries of left lower leg, subsequent encounter (principal); W10.8XXD Fall (on) (from) other stairs and steps, subsequent encounter; D64.9 Anemia, unspecified
CPT/HCPCS: 99282-25